=== PATIENT | female | born 1995 | race American Indian/Alaskan Native ===

== ENCOUNTER 2019-11-26 07:56 | Inpatient (IN) | payer MEDICAID ==
[2019-11-26] MEDS ORDERED: Lactated Ringers 1,000 ML IV ONE (08:16)
[2019-11-26] MEDS ORDERED: Methylergonovine 0.2 MG/1 ML Amp IM PRN (08:16)
[2019-11-26] MEDS ORDERED: Tranexamic Acid 1,000 MG in Sodium Chloride 0.9% 100 ML IV PRN (08:16)
[2019-11-26] MEDS ORDERED: Misoprostol 400 MCG (4 X 100 MCG TAB) RECTAL PRN (08:16)
[2019-11-26] MEDS ORDERED: Carboprost Tromethamine 250 MCG/1 ML Amp IM PRN (08:16)
[2019-11-26] MEDS ORDERED: Sodium Chloride 0.9% 10 ML Syringe FLUSH PRN ×2 (08:16→09:17)
[2019-11-26] MEDS ORDERED: Ondansetron 4 MG/2 ML SDV IVPUSH PRN (08:16)
[2019-11-26] MEDS ORDERED: Acetaminophen 325 MG Tab PO PRN (08:16)
[2019-11-26] MEDS ORDERED: Lidocaine 1% 30 ML SDV INJECT PRN (08:16)
[2019-11-26] MEDS ORDERED: Lactated Ringers 1,000 ML IV SCH (08:30)
[2019-11-26] MEDS ORDERED: Oxytocin/Normal Saline 30 UNIT/500 ML BAG IV SCH (08:30)
[2019-11-26] MEDS ORDERED: Oxytocin 10 Units/1 ML SDV IM PRN (09:17)
[2019-11-26] MEDS ORDERED: Benzocaine/Menthol 20%-0.5% Spray 56 GM Canister TOP PRN (09:17)
[2019-11-26] MEDS ORDERED: Zolpidem 5 MG Tab PO PRN (09:17)
[2019-11-26] MEDS ORDERED: Simethicone 80 MG Tab.Chew PO PRN (09:17)
[2019-11-26] MEDS ORDERED: Docusate Sodium 100 MG Cap PO PRN (09:17)
[2019-11-26] MEDS ORDERED: Measles, Mumps & Rubella Vaccine 0.5 ML SDV SUBCUT ONE (09:17)
[2019-11-26] MEDS: Ibuprofen 800 MG Tab PO PRN ×2 (11:25→19:56)
[2019-11-27] MEDS ORDERED: Ferrous Sulfate 325 MG Tab PO SCH (08:00)
[2019-11-27] MEDS: Ibuprofen 800 MG Tab PO PRN (08:17)
[2019-11-27] MEDS ORDERED: Prenatal Multivitamin with Calcium/Folic Acid/Iron Tab PO SCH (09:00)
--- NOTE | 2019-11-27 10:17 | HP ---
PATIENT IDENTIFICATION: Jesica Figueroa is a 24-year-old G3, P1-0-1-1, intrauterine at 39 and 4/7 weeks, confirmed with ultrasound at outlying facility, who presents with contraction. HISTORY OF PRESENT ILLNESS: The patient states contractions have been going on over the last 24 hours. Worse since 4:30 a.m. on date of admission, increasing in frequency and intensity to the point that she is breathing through them. Rates them 10/10. Comes every 2 minutes, felt in the lower abdomen, and associated with minimal spotting. To put this in context, she recently traveled from [place] to the [facility]. She is GBS negative. Had limited care per chart review and anemia with hemoglobin of 8.3 on 11/23/2019, when she was evaluated by Dr. Henry. She is also rubella nonimmune. The patient was brought in via ambulance for her contractions. Records were called for, reviewed as below, and supplemented by the patient's history. OB HISTORY: Miscarriage in 2012, not requiring a D and C, and delivery on 06/04/2015 of a female weighing 7 pounds, with spontaneous vaginal delivery with no complications per the patient. [facility]: ABO blood type A positive, negative antibody. Rubella nonimmune. RPR nonreactive. Negative hepatitis B surface antigen. Hepatitis C, GC, chlamydia with HIV unavailable and to be ordered upon admission. GBS was negative reported per outlying facility. Fasting glucose was 92. 1-hour GTT was 169, 2-hour 154, and 3-hour was 102 with testing while she was . PAST MEDICAL/PAST SURGICAL HISTORY: Remarkable for asthma. No surgeries. The patient does have history of urinary tract infections in the past and history of STD with the patient treated for chlamydia in 2014 with it negative during this . MEDICATIONS: Albuterol inhaler, uses it regularly and last use was within the last 48 to 72 hours, and was supposed to be on vitamins but has not been taking them. ALLERGIES: None. FAMILY HISTORY: Negative for anesthesia, bleeding problems, clots, clotting disorders in the family history with thyroid dysfunction in father of baby, having Graves disease in father of baby's mother, having heart disease, failure. Diabetes in the paternal grandmother. Type 2 diabetes in father of the baby. Uncles have type 2 diabetes. Father of the baby's mother has lupus. SOCIAL HISTORY: The patient recently moved from [place], presents with male partner. UDS done on initial evaluation on 11/23/2019 was negative. She admitted to THC use earlier in the per chart review. Denies any tobacco, alcohol, or drug use today. REVIEW OF SYSTEMS: Quickly obtained and otherwise reviewed fully and felt to be noncontributory other than the above. OBJECTIVE: Vital Signs: Blood pressure 136/85, heart rate of 84, temperature 98.6. Appearance: Female, appears her stated age, acting appropriate for age. Nontoxic appearance. Breathing through contractions, but answering questions appropriately in between. HEENT: Head: Atraumatic. EOMs intact. PERRLA. No scleral icterus. No obvious otorhinorrhea. Mucous membranes moist. Neck: No obvious tenderness. Lungs: Clear to auscultation bilaterally. No increased work of breathing. Heart: S1 and S2. Regular rate and rhythm. Abdomen: Gravid. Curry's indeterminate. Nontender, nondistended. Bowel sounds positive. No organomegaly, pulsatile masses, or obvious hernias. No rebound, rigidity, or guarding. Monitors applied. Genitourinary: Normal external female genitalia. Normal position and presentation of the urethra. Vaginal exam reveals her to be 7 to 8 cm, and after discussion, artificial rupture of membranes was done and yielding copious amounts of clear fluid. Extremities: No peripheral edema. Deep tendon reflexes 2/4 to 3/4 bilaterally and symmetric in lower extremities. Psychiatric: Mood and affect congruent. Judgment and insight intact. SKIN: No cyanosis, clubbing, or jaundice. heart tones were in the 130s range. Tocometer reveals contractions every 2 minutes. Shortly after artificial rupture of membranes, bladder was catheterized revealing 200 mL of urine under sterile technique with urine drug screen drawn as well. INVESTIGATIONS: UDS negative. White cell count 10.4, hemoglobin 9.7, platelets 218. ASSESSMENT AND PLAN: 1. Intrauterine at 39 and 4/7 weeks, confirmed with outlying ultrasound. 2. Active labor. 3. Advanced cervical dilation upon admission being 6 to 7 initially by nurse, 7 to 8 as above with artificial rupture of membranes done. 4. Group B Streptococcus negative. 5. Limited care with recently moving from [place]. 6. History of questionable urinary tract infection, on Macrobid, but urine culture returned negative and we will discontinue this. 7. Maternal anemia. Hemoglobin 8.3 on 11/23/2019 and 9.7 on 11/26/2019. 8. Rubella nonimmune. 9. History of THC use admitted in per chart review. UDS negative on 11/23/2019 and 11/26/2019. 10.G3, P1-0-1-1. PLAN: The patient will be admitted. She came in via ambulance. Had artificial rupture of membranes done as above. She was followed closely thereafter and then went on to have spontaneous vaginal delivery. Please see delivery notes for further details. Please see orders for further details as well. [facility] /[id number]
--- NOTE | 2019-11-27 10:32 | DEL ---
DATE: 11/26/2019 PREOPERATIVE DIAGNOSES: 1. Intrauterine at 39 and 4/7 weeks, confirmed with outlying ultrasound. 2. Active labor upon admission. 3. Advanced cervical dilation upon admission. 4. Group B Streptococcus negative. 5. Limited care. Recently moved from [place]. 6. Suspected urinary tract infection, on Macrobid, and we will discontinue today as culture returned negative. 7. Maternal anemia with hemoglobin 9.7 upon admit and 8.3 on 11/23/2019. 8. Rubella nonimmune. 9. G3, P1-0-1-1. 10.History of THC use admitted in the . UDS negative on 11/23/2019 and 11/26/2019. 11.History of asthma. POSTOPERATIVE DIAGNOSES: 1. Intrauterine at 39 and 4/7 weeks, confirmed with outlying ultrasound-delivered. 2. Active labor upon admission. 3. Advanced cervical dilation upon admission. 4. Group B Streptococcus negative. 5. Limited care. Recently moved from [place]. 6. Suspected urinary tract infection, on Macrobid, and we will discontinue today as culture returned negative. 7. Maternal anemia with hemoglobin 9.7 upon admit and 8.3 on 11/23/2019. 8. Rubella nonimmune. 9. G3, P1-0-1-1. 10.History of THC use admitted in the . UDS negative on 11/23/2019 and 11/26/2019. 11.Nuchal cord x1, reduced bluntly with delivery. 12.History of asthma. PROCEDURES PERFORMED: NST, artificial rupture of membranes, spontaneous vaginal delivery on 11/26/[address] Henry. ANESTHESIA/ANALGESIA: The patient did receive some Nitrox occasionally and intermittently during the first late stage of labor. ESTIMATED BLOOD LOSS: 200 mL. FINDINGS: Female, scores 8 and 9, weight pending. Nuchal cord x1, reduced bluntly with delivery. SUMMARY OF EVENTS: The patient is a 24-year-old G3, P1-0-1-1, intrauterine at 39 and 4/7 weeks, brought in via [facility] ambulance in active labor with advanced cervical dilation. Upon admission, IV was started. Monitoring was started. She was having rapid cervical dilation. Artificial rupture of membranes was done after discussion with the patient yielding copious amounts of clear fluid. She continued in labor. She was found to be in the second stage of labor, and with 2 contractions with pushing, vertex was delivered in a MICHELL presentation with nuchal cord x1, reduced bluntly with delivery. With reducing this and quick pushing, rapid delivery was noted. Mouth and nares were suctioned. Cord was doubly clamped and cut. Infant was resuscitated on mother's abdomen. Approximately 10 mL of cord blood was obtained for labs. Placenta was then delivered with gentle cord traction and fundal massage within 5 to 10 minutes. Perineum, vagina, and perirectal areas were then examined without any tears or lacerations with small periurethral abrasions noted. Mother and are currently stable at the time of dictation. [facility] /[id number]
--- NOTE | 2019-11-27 12:03 | PN ---
DATE: 11/27/2019 day #1. SUBJECTIVE: The patient is tolerating p.o., ambulating, urinating, passing flatus. OBJECTIVE: Vital Signs: Temperature 97.6; heart rate 97; blood pressure 120/58, and 112/66 this morning; respiratory rate 16. Lungs: Clear to auscultation bilaterally. Heart: S1 and S2. Regular rate and rhythm. Genitourinary: Firm uterus at -1 below umbilicus. Extremities: No peripheral edema. No calf pain. LABORATORY DATA: White cell count 8.2; hemoglobin 9.3, compared to predelivery hemoglobin of 9.7; platelets 192. HIV rapid test was negative yesterday. ASSESSMENT: 1. day #1, status post spontaneous vaginal delivery. 2. Anemia of acute blood loss, compounded by maternal anemia with hemoglobin as above. The patient is currently asymptomatic. We will continue to follow clinically and closely. Start some iron. PLAN: Possible discharge tomorrow. Discussed with the patient. She understands and agrees with the above treatment plan. [facility] /[id number]
--- NOTE | 2019-11-27 14:08 | OBOUT ---
DATE: 11/26/2019 TIME: 08:29 to 08:49. REASON FOR NST: 1. Intrauterine at 39 and 4/7 weeks, confirmed with outlying ultrasound. 2. Active labor with advanced cervical dilation. 3. GBS negative. 4. Limited care. Recently moved from [place]. 5. Urinary tract infection suspected, on Macrobid, culture negative. We will stop. 6. Maternal anemia with hemoglobin 8.3 on 11/23/2019 and 9.7 on 11/26/2019. 7. Rubella nonimmune. 8. History of methamphetamine and THC use in . UDS negative on 11/23/2019 and 11/26/2019. 9. History of asthma. 10.G3, P1-0-1-1. NST INTERPRETATION: During this time period, heart tone baseline is approximately 130, and there are at least two 15 x 15 beats per minute accelerations, making this strip reactive. It is also noted to be reassuring. Tocometer reveals potential of 10 contractions during this time period felt by the patient. ASSESSMENT: 1. Nonstress test, reactive and reassuring. 2. Tocometer with contractions. PLAN: Please see OB history and physical as well as delivery note. [facility] /[id number]
--- NOTE | 2019-11-28 09:00 | DISCH ---
ADMITTING DIAGNOSES: 1. Intrauterine at 39-4/7 weeks confirmed by outlying ultrasound. 2. Active labor upon admission. 3. Advanced cervical dilation upon admission. 4. Group B Streptococcus negative. 5. Limited care, recently moved from [place]. 6. Suspect urinary tract infection. Macrobid stopped upon admission as culture was negative. 7. Maternal anemia with hemoglobin 9.7 upon admission and on 11/23/2019 being 8.3. 8. History of asthma. 9. Rubella nonimmune. 10.History of THC use in the with UDS negative on 11/22 and 11/26/2019. 11.G3, P1-0-1-1. DISCHARGE DIAGNOSES: 1. Intrauterine at 39-4/7 weeks confirmed by outlying ultrasound- delivered. 2. Nuchal cord x1, reduced bluntly with delivery. 3. Active labor upon admission. 4. Advanced cervical dilation upon admission. 5. Group B Streptococcus negative. 6. Limited care, recently moved from [place]. 7. Suspect urinary tract infection. Macrobid stopped upon admission as culture was negative. 8. Maternal anemia with hemoglobin 9.7 upon admission and on 11/23/2019 being 8.3. 9. History of asthma. 10.Rubella nonimmune. 11.History of THC use in the with UDS negative on 11/22 and 11/26/2019. 12.G3, P1-0-1-1. PROCEDURE PERFORMED: Nonstress test, artificial rupture of membranes, spontaneous vaginal delivery on 11/26/[address] Henry. HISTORY OF PRESENT ILLNESS: Please see H and P. SUMMARY OF HOSPITAL COURSE: The patient was admitted on the above date with above diagnosis, was in active labor with advanced cervical dilation upon admit. Went on to have a spontaneous vaginal delivery, yielding a female. scores of 8 and 9, weighing 7 pounds 1 ounce (3210 g). Please see delivery note for further details. day #1, please see progress notes for evaluation. Discharge evaluation done with this as well and added on later in the afternoon when she and her male partner were requesting discharge. Further evaluation did reveal a firm uterus, still at -1 to -2 below umbilicus. No peripheral edema. The patient was tolerating p.o., ambulating, urinating, passing flatus, and requesting discharge. CONDITION ON DISCHARGE COMPARED TO CONDITION ON ADMISSION: Improved. DISCHARGE INSTRUCTIONS: Diet: As tolerated. Activity: No lifting more than 20 pounds. No sit-ups, straining and pelvic rest for next 6 weeks with immediate return to fertility discussed with the patient. Reasons to return or go to the emergency room were discussed with the patient in detail, including, but not limited to, temperature greater than 100.4, foul- smelling discharge, red hot tender breasts, or increased vaginal bleeding or other concerns. FOLLOWUP: In 6 weeks . I did discuss with her in the interim reasons to return or go to emergency in regard to baby as well as importance of followup and ramifications of not doing so. She understands and agrees with the above treatment and plan. Over half hour today has been spent in discharge evaluation and management of this patient. [facility] /[id number]
== END 2019-11-27 17:04 | disposition home or self-care (01) | DRG 806 ==
LOC: DL.OBCHECK 07:56 → DL.OB 08:16 → UNDOADMOB 08:17 → OBSVTOIN 09:00 → DL.OB 09:00
PROVIDERS: ADMIT Family Medicine; ATTEND Family Medicine
PROC: 10E0XZZ Delivery of Products of Conception, External Approach (ICD-10-PCS; principal; 2019-11-26)
PROC: 10907ZC Drainage of Amniotic Fluid, Therapeutic from Products of Conception, Via Natural or Artificial Opening (ICD-10-PCS; 2019-11-26)
DX: O69.81X0 Labor and delivery complicated by cord around neck, without compression, not applicable or unspecified (principal); D62 Acute posthemorrhagic anemia; Z37.0 Single live birth; O99.52 Diseases of the respiratory system complicating childbirth; J45.909 Unspecified asthma, uncomplicated; O99.03 Anemia complicating the puerperium; Z3A.39 39 weeks gestation of pregnancy; Z79.51 Long term (current) use of inhaled steroids
CPT/HCPCS: 36415; 51701; 59409; 80305-QW; 85027; 87389; 90471; 90707; A9270-GY; J2590; J7120

== ENCOUNTER 2019-12-04 02:30 | Observation (INO) | payer MEDICAID ==
--- NOTE | 2019-12-04 02:33 | EDM.PDOC ---
ED HPI GENERAL MEDICAL PROBLEM - General Chief Complaint: [employer] Problem Stated Complaint: AMBULANCE Time Seen by Provider: 12/04/19 02:30 Source of Information: Reports: Patient, EMS History Limitations: Reports: No Limitations - History of Present Illness INITIAL COMMENTS - FREE TEXT/NARRATIVE: EMS arrived at scene of pt bleeding down her legs and blood in toilet bowl and floor. pt states was going to bathroom the started bleeding. post last week. pt c/o lightheaded dizzy passing out. - Related Data Allergies Allergy/AdvReac Type Severity Reaction Status Date / Time No Known Allergies Allergy Verified 11/26/19 09:52 Home Meds: Home Meds . [No Known Home Meds] 11/23/19 [History] Past Medical History HEENT History: Reports: None Cardiovascular History: Reports: None Respiratory History: Reports: Asthma Gastrointestinal History: Reports: None Genitourinary History: Reports: None [employer] History: Reports: , Spontaneous Musculoskeletal History: Reports: None Neurological History: Reports: None Psychiatric History: Reports: None Endocrine/Metabolic History: Reports: None Hematologic History: Reports: Anemia Oncologic (Cancer) History: Reports: None Dermatologic History: Reports: None - Infectious Disease History Infectious Disease History: Reports: None - Past Surgical History Head Surgeries/Procedures: Reports: None Social & Family History - Family History Family Medical History: Noncontributory - Caffeine Use Caffeine Use: Reports: Coffee, Soda ED ROS GENERAL - Review of Systems Review Of Systems: Comprehensive ROS is negative, except as noted in HPI. ED EXAM, GI/ABD - Physical Exam Exam: See Below Exam Limited By: No Limitations General Appearance: Alert, WD/WN, Mild Distress, Moderate Distress, Other ( tearful) Ears: Hearing Grossly Normal Throat/Mouth: Normal Voice, No Airway Compromise Head: Atraumatic Neck: Non-Tender, Full Range of Motion Respiratory/Chest: No Respiratory Distress Cardiovascular: Regular Rate, Rhythm GI/Abdominal Exam: Soft, Non-Tender (Female) Exam: Other (os open, slow oozing, no gross tissues.) Neurological: Alert, Oriented, Normal Cognition, Normal Gait, No Motor/Sensory Deficits Psychiatric: Tearful Skin Exam: Warm, Dry, Normal Color Lymphatic: No Adenopathy Course - Vital Signs Last Recorded V/S: Last Vital Signs Temp 36.8 C 12/04/19 02:28 Pulse 61 03/23/20 02:28 Resp 19 12/04/19 02:28 BP 105/50 L 12/04/19 02:28 Pulse Ox 100 12/04/19 02:28 - Orders/Labs/Meds Orders: Active Orders 24 hr Category Date Time Status EKG 12 Lead [EKG Documentation Completion] [RC] STAT Care 12/04/19 02:34 Active Labs: Laboratory Tests 12/04/19 12/04/19 12/04/19 Range/Units 02:30 02:30 02:30 WBC 7.2 (5.0-10.0) 10^3/uL RBC 4.34 (4.2-5.4) 10^6/uL Hgb 9.2 L (12.0-16.0) g/dL Hct 30.6 L (37.0-47.0) % MCV 70.5 L (80-100) fL MCH 21.2 L (27.0-34.0) pg MCHC 30.1 L (33.0-35.0) g/dL Plt Count 289 D (150-450) 10^3/uL Neut % (Auto) 43.4 (42.2-75.2) % Lymph % (Auto) 45.5 (20.5-50.1) % [place] % (Auto) 8.9 H (2-8) % Eos % (Auto) 1.9 (1.0-3.0) % Baso % (Auto) 0.3 (0.0-1.0) % PT 9.7 (9.0-12.0) SEC INR 1.0 (0.9-1.2) APTT 22.1 (22.0-34.0) SEC Sodium 142 (136-145) mmol/L Potassium 3.7 (3.5-5.1) mmol/L Chloride 105 (98-107) mmol/L Carbon Dioxide 28 (21-32) mmol/L Anion Gap 12.7 (7-13) mEq/L BUN 14 (7-18) mg/dL Creatinine 0.74 (0.55-1.02) mg/dL Est Cr Clr Drug Dosing 97.81 mL/min Estimated GFR (MDRD) > 60 BUN/Creatinine Ratio 18.9 (No establ ref range) Glucose 106 H (74-99) mg/dL Calcium 7.5 L (8.5-10.1) mg/dL Total Bilirubin 0.2 (0.2-1.0) mg/dL AST 17 (15-37) U/L ALT 17 (14-59) U/L Alkaline Phosphatase 106 (46-116) U/L Total Protein 5.9 L (6.4-8.2) g/dL Albumin 2.5 L (3.4-5.0) g/dL Globulin 3.4 Albumin/Globulin Ratio 0.74 Ethyl Alcohol < 3 (0) mg/dL - Re-Assessments/Exams Free Text/Narrative Re-Assessment/Exam: 12/04/19 04:[address] Lyons who kindly admitted pt to observation. Departure - Departure Time of Disposition: 04:57 Disposition: Refer to Observation Condition: Good Clinical Impression: Retained placenta or membranes - Discharge Information Forms: ED Department Discharge Sepsis Event Note - Focused Exam Vital Signs: Vital Signs Temp Pulse Resp BP Pulse Ox 12/04/19 02:28 36.8 C 61 19 105/50 L 100 Date Exam was Performed: 12/04/19 Time Exam was Performed: 04:56 - My Orders Last 24 Hours: My Active Orders 12/04/19 02:34 EKG 12 Lead [EKG Documentation Completion] [RC] STAT - Assessment/Plan Last 24 Hours: My Active Orders 12/04/19 02:34 EKG 12 Lead [EKG Documentation Completion] [RC] STAT
[2019-12-04 03:01] LABS: ANION GAP 12.7 mEq/L (7-13); CHLORIDE,CL 105 mmol/L (98-107); SODIUM,NA 142 mmol/L (136-145)
[2019-12-04 03:10] LABS: PTT,PARTIAL THROMBOPLSTIN TIME 22.1 SEC (22.0-34.0)
--- NOTE | 2019-12-04 05:35 | PCM.SN ---
- Free Text/Narrative Note: History and Physical 12/04/19 Chief Complaint: post bleeding HPI: Jesica is a 24 yo G3 now P2012 who delivered on 11/26/19 at 39w4d via and presents today with vaginal bleeding. She reports the bleeding after delivery had slowed and she was doing well at home until this evening. Around 0100 she noted that she got up to use the bathroom and had a large gush of fluid that filled the toilet bowl. She continue to bleed steadily after that and became lightheaded. She put on a pad and came to the ER for evaluation. She noted the pad was soaked on arrival and she was still lightheaded. In the ER and US was obtained showing a 9mm stripe and could not rule out products of conception. She was feeling better after 2L of IVF and noted the bleeding had stopped. ROS: Negative for headache, nausea, vomiting, diarrhea, fever, chills, abdominal pain, hematuria, dysuria. Allergies: NKDA Medications: albuterol prn Medical Hx: asthma, h/o chlamydia in 2014, anemia Surgical Hx: none Family Hx: negative for bleeding or clotting disorders OB Hx: miscarriage in 2012 without DnC, 2014 without complication Social Hx: recently moved from [place] Labs: Blood Type: A positive Laboratory Last Values WBC 7.2 10^3/uL (5.0-10.0) 12/04/19 02:30 RBC 4.34 10^6/uL (4.2-5.4) 12/04/19 02:30 Hgb 9.2 g/dL (12.0-16.0) L 12/04/19 02:30 Hct 30.6 % (37.0-47.0) L 12/04/19 02:30 MCV 70.5 fL (80-100) L 12/04/19 02:30 MCH 21.2 pg (27.0-34.0) L 12/04/19 02:30 MCHC 30.1 g/dL (33.0-35.0) L 12/04/19 02:30 Plt Count 289 10^3/uL (150-450) D 12/04/19 02:30 Neut % (Auto) 43.4 % (42.2-75.2) 12/04/19 02:30 Lymph % (Auto) 45.5 % (20.5-50.1) 12/04/19 02:30 Coffee % (Auto) 8.9 % (2-8) H 12/04/19 02:30 Eos % (Auto) 1.9 % (1.0-3.0) 12/04/19 02:30 Baso % (Auto) 0.3 % (0.0-1.0) 12/04/19 02:30 PT 9.7 SEC (9.0-12.0) 12/04/19 02:30 INR 1.0 (0.9-1.2) 12/04/19 02:30 APTT 22.1 SEC (22.0-34.0) 12/04/19 02:30 Sodium 142 mmol/L (136-145) 12/04/19 02:30 Potassium 3.7 mmol/L (3.5-5.1) 12/04/19 02:30 Chloride 105 mmol/L (98-107) 12/04/19 02:30 Carbon Dioxide 28 mmol/L (21-32) 12/04/19 02:30 Anion Gap 12.7 mEq/L (7-13) 12/04/19 02:30 BUN 14 mg/dL (7-18) 12/04/19 02:30 Creatinine 0.74 mg/dL (0.55-1.02) 12/04/19 02:30 Est Cr Clr Drug Dosing 97.81 mL/min 12/04/19 02:30 Estimated GFR (MDRD) > 60 12/04/19 02:30 BUN/Creatinine Ratio 18.9 (No establ ref range) 12/04/19 02:30 Glucose 106 mg/dL (74-99) H 12/04/19 02:30 Calcium 7.5 mg/dL (8.5-10.1) L 12/04/19 02:30 Total Bilirubin 0.2 mg/dL (0.2-1.0) 12/04/19 02:30 AST 17 U/L (15-37) 12/04/19 02:30 ALT 17 U/L (14-59) 12/04/19 02:30 Alkaline Phosphatase 106 U/L (46-116) 12/04/19 02:30 Total Protein 5.9 g/dL (6.4-8.2) L 12/04/19 02:30 Albumin 2.5 g/dL (3.4-5.0) L 12/04/19 02:30 Globulin 3.4 12/04/19 02:30 Albumin/Globulin Ratio 0.74 12/04/19 02:30 Ethyl Alcohol < 3 mg/dL (0) 12/04/19 02:30 Physical Exam: Vitals: Last Vital Signs Temp 98.3 F 12/04/19 02:28 Pulse 61 12/04/19 02:28 Resp 19 12/04/19 02:28 BP 105/50 L 12/04/19 02:28 Pulse Ox 100 12/04/19 02:28 Gen: No distress CV: Well-perfused, 2+ distal pulses, regular rate and rhythm, no audible murmurs Resp: Non-labored, symmetrical chest expansion, clear to auscultation Abd: gravid, soft, non tender Ext: Moves all extremities, no edema. Assessment: Jesica is a 24 yo G3 now P2012 who delivered on 11/26/19 at 39w4d via and presents today with post vaginal bleeding, which has currently stopped, who is hemodynamically stable. Plan: - Admit for observation - Monitor for bleeding - If pt remains stable and bleeding does not resume, will consider discharge home later today - If pt remains stable bleeding recurs, will consider rectal cytotec vs IV pitocin for medical management - If pt become unstable and bleeding recurs, will consider D&C - IVF at 100 cc/hr - Will follow closely - Case discussed with Dr. [place], who is available to assist should D&C be required. Hayley Lyons MD
[2019-12-04] MEDS ORDERED: Ibuprofen 800 MG Tab PO PRN (06:00)
[2019-12-04] MEDS ORDERED: Sodium Chloride 0.9% 10 ML Syringe FLUSH PRN (06:00)
[2019-12-04] MEDS ORDERED: Acetaminophen 325 MG Tab PO PRN (06:00)
[2019-12-04] MEDS ORDERED: Sodium Chloride 0.9% 1,000 ML IV SCH (06:00)
[2019-12-04] MEDS ORDERED: Misoprostol 400 MCG (4 X 100 MCG TAB) RECTAL PRN (06:00)
[2019-12-04] MEDS ORDERED: Prenatal Multivitamin with Calcium/Folic Acid/Iron Tab PO SCH (09:00)
--- NOTE | 2019-12-05 10:16 | DISCH ---
ADMITTING DIAGNOSES: 1. bleeding - significant. 2. Anemia of acute blood loss. 3. Symptomatic anemia. DISCHARGE DIAGNOSES: 1. bleeding - significant - resolved. 2. Anemia of acute blood loss - resolved. 3. Symptomatic anemia - resolved. HISTORY OF PRESENT ILLNESS: Please see H and P. SUMMARY OF HOSPITAL COURSE: The patient admitted with the above diagnoses, noted to have a spontaneous vaginal delivery on 11/26/2019 at 39 and 4/7 weeks, presented with vaginal bleeding earlier this morning that was enough that it turned the toilet bowl red and had a large gush of fluid that filled the toilet bowl. She became lightheaded after that, soaked through a pad and then came into the ER. They did give her 2 L IV fluids and bleeding decreased. Vital signs were followed closely as well as serial labs with hemoglobin initially 9.2 in the ER upon admission and then 8.4 later in the day at around approximately 10 a.m. DISCHARGE EVALUATION: The patient notes vaginal bleeding significantly decreased. She denies any chest pain, shortness of breath, or lightheadedness. She has gotten up and walked around and has had no difficulties. They do note today that she was lifting a whole bunch and carrying stuff yesterday and they think this might be related to her bleeding. OBJECTIVE: Vital Signs: Temperature 97.2, heart rate 73, blood pressure 108/52, respiratory rate 15, O2 saturations 100%. Appearance: No apparent distress. HEENT: Head is atraumatic. EOMs intact. PERRLA. No scleral icterus. No obvious otorhinorrhea. Mucous membranes are moist. Neck: No obvious tenderness. Lungs: Clear to auscultation bilaterally. No increased work of breathing. Heart: S1 and S2. Regular rate and rhythm. Abdomen: Firm uterus -3 to -4 below the umbilicus. : Deferred. No peripheral edema. No calf pain. LABS: As above. CONDITION ON DISCHARGE COMPARED TO CONDITION ON ADMISSION: Improved. DISCHARGE INSTRUCTIONS: Diet: As tolerated. Activity: No lifting more than 10 pounds. Not a lot of moving around, sit-ups or straining. Reasons to return or go to the emergency room were discussed with the patient in detail including, but not limited to, temperature greater than 100.4, foul- smelling discharge, red hot tender breasts, or increased vaginal bleeding. DISCHARGE MEDICATIONS: [id number] Tylenol or ibuprofen for pain; iron sulfate 325 b.i.d., which she has at home for the next 6 weeks; vitamins x6 weeks, which she has at home. Over 1/2 hour has been spent in discharge evaluation and management of this patient today. Please see discharge paperwork for further details as well. [facility] /[id number]
== END 2019-12-04 11:40 | disposition home or self-care (01) ==
LOC: DL.ED 02:30 → DL.MS 05:15
PROVIDERS: ADMIT Family Medicine; ATTEND Family Medicine
DX: O72.1 Other immediate postpartum hemorrhage (principal); O99.53 Diseases of the respiratory system complicating the puerperium; J45.909 Unspecified asthma, uncomplicated; O99.13 Other diseases of the blood and blood-forming organs and certain disorders involving the immune mechanism complicating the puerperium; D62 Acute posthemorrhagic anemia
CPT/HCPCS: 36415; 76856; 80053; 80307; 85025; 85027; 85610; 85730; 86850; 86900; 86901; 93005; 96360; 96361; 99284; 99285; A9270; G0378; J7030